=== PATIENT | male | born 1945 | race Caucasian/White ===

== ENCOUNTER 2019-04-11 15:34 | Emergency (ER) | payer MEDICARE, OTHER ==
[2019-04-11 15:43] VITALS: TEMP 98.8
[2019-04-11 17:21] LABS: CALCIUM 8.9 mg/dl (8.5-10.1); CARBON DIOXIDE 25.7 mEq/L (21-32); CREATININE 0.81 mg/dl (0.80-1.30)
[2019-04-11 17:27] LABS: BASOPHILS % (AUTO) 1 % (0-3); EOSINOPHILS % (AUTO) 0 % (0-9); HEMATOCRIT 47 % (39-53); HEMOGLOBIN 15.3 gm/dl (13.5-17.7); LYMPHOCYTES % (AUTO) 7.7 % (10-50); MEAN CORPUSCULAR HEMOGLOBIN 29.3 pg (27.0-32.0); MEAN CORPUSCULAR HGB CONC 32.8 gm/dl (32.0-36.0); MEAN CORPUSCULAR VOLUME 90 fL (80-100); NEUTROPHILS % (AUTO) 87.4 % (37-80)
[2019-04-11 17:28] LABS: APPEARANCE,URINE Clear; BILIRUBIN,URINE NEGATIVE (NEGATIVE); COLOR,URINE Yellow; GLUCOSE, URINE (UA) NEGATIVE (NEGATIVE); KETONES,URINE NEGATIVE (NEGATIVE); LEUKOCYTE ESTERASE ,URINE NEGATIVE (NEGATIVE); NITRATE,URINE NEGATIVE (NEGATIVE); OCCULT BLOOD,URINE NEGATIVE (NEG-TRACE); UROBILINOGEN,URINE 0.2 (0.2-1.0 EU)
[2019-04-11 17:31] LABS: RBC,URINE NEG (0-3AV/HPF); WBC,URINE NEG (0-5AV/HPF)
[2019-04-11 17:32] LABS: BACTERIA NEGATIVE (< 1+); CRYSTALS NEGATIVE (0-3 AVE/HPF); EPITHELIAL CELLS 0-1 (SQUAMOUS)
[2019-04-11 18:39] VITALS: PULSE 80
[2019-04-11 19:34] VITALS: RESP 20
[2019-04-11 19:34] LABS: INR 1.03 (0.86-1.12)
[2019-04-11 19:57] VITALS: BP 174/89; O2SAT 96
== END 2019-04-11 19:59 | disposition short-term general hospital (02) | DRG 316 ==
LOC: ED 15:34
DX: R58 Hemorrhage, not elsewhere classified (principal); M25.552 Pain in left hip
CPT/HCPCS: 36415; 73501; 74176; 74177; 80048; 81001; 85025; 85610; 86140; 99284; 99285; Q9967